=== PATIENT | female | born 1985 | race Caucasian/White ===

== ENCOUNTER 2016-07-26 12:47 | Observation (INO) | payer OTHER, MEDICAID ==
[2016-07-26 15:19] LABS: URINE BILIRUBIN NEGATIVE (NEG); URINE BLOOD NEGATIVE (NEG); URINE GLUCOSE (UA) NEGATIVE (NEG); URINE KETONE MODERATE (NEG); URINE LEUKOCYTE ESTERASE NEGATIVE (NEG); URINE NITRITE NEGATIVE (NEG); URINE PROTEIN SMALL (NEG); URINE SPECIFIC GRAVITY 1.015 (1.003-1.030)
[2016-07-26 15:27] LABS: URINE COLOR YELLOW
[2016-07-26 15:28] LABS: URINE APPEARANCE HAZY
[2016-07-26 15:30] LABS: URINE BACTERIA 1+; URINE MUCUS 2+; URINE RBC 0 /[HPF] (0-5); URINE WBC 0-3 /[HPF] (0-5)
[2016-07-26] MEDS ORDERED: PRENATAL VITAM1 EAC7 PO (15:50)
[2016-08-02] MEDS ORDERED: CHILD CHEW VIT1 EAC1 PO (19:03)
[2016-09-08] MEDS ORDERED: TUMS200 MG PO (05:00)
[2016-09-10] MEDS ORDERED: IBUPROFEN800 M1 PO (17:58)
== END 2016-07-26 16:30 ==
LOC: LDR 12:47
PROVIDERS: Advanced Practice Midwife; ADMIT Advanced Practice Midwife
DX: O47.03 False labor before 37 completed weeks of gestation, third trimester (principal); Z3A.32 32 weeks gestation of pregnancy; Z79.899 Other long term (current) drug therapy; Z88.0 Allergy status to penicillin

== ENCOUNTER 2016-08-19 21:05 | Observation (INO) | payer OTHER, MEDICAID ==
[~2016-08-19 21:05] MED LIST: CHILD CHEW VIT1 EAC1 PO; PRENATAL VITAM1 EAC7 PO
[2016-08-19 22:31] LABS: URINE BILIRUBIN NEGATIVE (NEG); URINE BLOOD NEGATIVE (NEG); URINE GLUCOSE (UA) NEGATIVE (NEG); URINE KETONE MODERATE (NEG); URINE LEUKOCYTE ESTERASE NEGATIVE (NEG); URINE NITRITE NEGATIVE (NEG); URINE PROTEIN NEGATIVE (NEG)
[2016-08-19 22:32] LABS: URINE APPEARANCE HAZY; URINE COLOR YELLOW
[2016-08-19 22:38] LABS: BASO % 0.1 % (0-2); EOS % 0.3 % (0-7); HCT-HEMATOCRIT 35.3 % (34.0-49.0); IMMATURE GRANULOCYTES ABSOLUTE 0.03 tho/cmm (0-0.03); IMMATURE GRANULOCYTES PERCENT 0.3 % (0-0.3); LYMPH ABSOLUTE COUNT 2.8 tho/cmm (0.8-4.5); MCH (MEAN CORPUSCULAR HGB) 30.7 pg (28.0-32.0); MCV (MEAN CELL VOLUME) 90.3 fl (82.0-96.0); MEAN PLATELET VOLUME 9.6 cmc (9.4-12.4); MONO % 7.3 % (0-12); MONOCYTE ABSOLUTE COUNT 0.8 tho/cmm (0.0-1.2); NEUTROPHIL ABSOLUTE COUNT 7.2 tho/cmm (1.6-8.0); NEUTROPHIL-AUTOMATED 7.2 tho/cmm (1.6-8.0); PLATELET COUNT 289 tho/cmm (150-450); RED BLOOD COUNT 3.91 mil/cmm (4.00-5.20); RED CELL DISTRIBUTION WIDTH 13.1 % (12.4-16.4); WHITE BLOOD COUNT 10.9 tho/cmm (4.0-10.0)
[2016-08-19 22:38] LABS: URINE AMORPHOUS 2+; URINE BACTERIA 1+; URINE EPITHELIAL CELLS 0 /[HPF] (0-10)
[2016-08-19] MEDS ORDERED: NO HOME MEDICATION XX (22:46)
[2016-08-19 22:55] LABS: ALB/GLOB RATIO 0.8 (0.8-2.0); ALBUMIN 3.2 g/dl (3.5-5.0); ALKALINE PHOSPHATASE 79 U/L (33-138); ALT/SGPT 12 U/L (12-78); ANION GAP 16 mmol/L (0-20); AST/SGOT 10 U/L (10-40); BILIRUBIN,TOTAL 0.3 mg/dl (0-1.5); BLOOD UREA NITROGEN 11 mg/dl (6-24); CALCIUM 11.4 mg/dl (8.5-10.5); CARBON DIOXIDE-VENOUS 23 mmol/L (22-32); CHLORIDE 105 mmol/l (96-110); CREATININE 0.66 mg/dl (0.50-1.10); GLUCOSE 81 mg/dL (70-110); POTASSIUM 3.6 mmol/L (3.7-5.1); SODIUM 140 mmol/L (135-145); eGFR VALUE FOR BLACK >90 mL/Min
[2016-09-08] MEDS ORDERED: TUMS200 MG PO (05:00)
[2016-09-10] MEDS ORDERED: IBUPROFEN800 M1 PO (17:58)
== END 2016-08-20 10:05 ==
LOC: LDR 21:05
PROVIDERS: ADMIT Obstetrics & Gynecology
DX: O47.03 False labor before 37 completed weeks of gestation, third trimester (principal); O16.3 Unspecified maternal hypertension, third trimester; Z3A.36 36 weeks gestation of pregnancy; Z88.0 Allergy status to penicillin
CPT/HCPCS: G0378